=== PATIENT | male | born 1990 | race Caucasian/White ===

== ENCOUNTER → 2016-07-02 | Outpatient (CLI) | payer OTHER ==
[~2016-07-02] MED LIST: AMOXICILLIN 8751 TAB PO; COLD; MOTRIN 800800 MG/TAB PO; NO HOME MEDICATIONS; NORCO 325 MG-51 TAB PO
== END ==
LOC: COL.RAD 09:15
DX: S42.145A Nondisplaced fracture of glenoid cavity of scapula, left shoulder, initial encounter for closed fracture (principal); S42.392A Other fracture of shaft of left humerus, initial encounter for closed fracture; X58.XXXA Exposure to other specified factors, initial encounter; M25.312 Other instability, left shoulder
CPT/HCPCS: A9585; Q9967